=== PATIENT | female | born 1980 | race Caucasian/White ===

== ENCOUNTER 2020-02-26 08:49 | Emergency (ER) | payer OTHER, SELFPAY ==
--- NOTE | 2020-02-26 08:55 | ED.GENADULT ---
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 With the lab to bleed freely washed with Betadine and rinsed appropriately while in the OR and she presents to the emergency room for post exposure discussion of prophylaxis. Related Data Allergies Allergy/AdvReac Type Severity Reaction Status Date / Time No Known Drug Allergies Allergy Verified 02/26/20 09:03 Review of Systems Review of Systems Narrative: Pertinent positive and negative findings as per HPI Remainder of review of systems is otherwise unremarkable for Constitutional: Fevers, chills, weakness CV: Chest pain, palpitations, dyspnea on exertion Respiratory: Cough, wheeze, dyspnea GI: Nausea, vomiting, diarrhea, change in bowel habits, black or bloody stools Patient History Surgical History History of third molar tooth extraction Social History Smoking Status: Never smoker Exam Narrative Exam Narrative: General: Alert appropriate in no acute distress Respiratory: Able to speak in full sentences, no obvious respiratory distress Skin: No obvious rashes, warm and dry Neurologic: Grossly intact no obvious asymmetries or abnormalities Psych, appropriate insight and affect, cooperative Right index finger with a small puncture wound along the paronychia with minimal amount of bleeding Initial Vital Signs Initial Vital Signs: Vital Signs Temperature 98.2 F 02/26/20 08:56 Pulse Rate 89 02/26/20 08:56 Respiratory Rate 18 02/26/20 08:56 Blood Pressure 155/93 H 02/26/20 08:56 Pulse Oximetry 100 02/26/20 08:56 Course Orders Ordered: ED Orders 02/26/20 09:42 HIV 1 & 2 Ab/Ag 4th Gen Combo Routine Hepatitis C Virus Antibody Stat Discontinued Medications Bacitracin (Bacitracin) 1 applic TOP NOW ONE Stop: 02/26/20 09:05 Last Admin: 02/26/20 09:25 Dose: 1 applic Documented by: MICK Vital Signs Vital signs: Vital Signs - 8 hr 02/26/20 08:56 02/26/20 09:56 Temperature 98.2 F Pulse Rate 89 70 Respiratory Rate 18 16 Blood Pressure 155/93 H Blood Pressure [Right Arm] 142/78 H Pulse Oximetry 100 Medical Decision Making MDM Narrative Medical decision making narrative: Low risk blood exposure with a 22 gauge hollow needle used for local anesthetic infiltration prior to needlestick. Hep B hep C and HIV testing done. Source patient is low enough risk that no prophylactic medications are recommended at this time. We are testing source patient. Patient will follow-up with occupational health. Discharge Plan Departure Patient Disposition: Home Clinical Impression: Needle stick injury Instructions: DI for Accidental Exposure to Body Fluids Activity Restrictions/Additional Instructions: Thank you for coming in today Please follow-up with occupational health regarding your hep B, hep C and HIV testing. They should also have access to the lab work results from the source patient. Due to your hepatitis B vaccination, the low risk of the patient as well as the exposure type, no post exposure prophylaxis is recommended at this time. Your blood pressure was slightly elevated when you came in and remains slightly elevated by the end of your ER visit. Please keep track of this and schedule appointment with Dr. Penny to follow-up. I wish you the best Referrals: Bear Penny MD [Primary Care Provider] -
[2020-02-26 08:56] VITALS: BP 155/93; PULSE 89; RESP 18; TEMP 36.8; O2SAT 100; BMI 21.6
[2020-02-26] MEDS: BACITRACIN OINT 0.9 GM PCKT 1 APPLIC TOP (09:25)
[2020-02-26 09:56] VITALS: BP 142/78; PULSE 70; RESP 16
[2020-02-26 11:03] LABS: HIV 1 & 2 Ab/Ag 4th Gen Combo NEGATIVE (NEGATIVE)
[2020-02-26 11:08] LABS: Hep C Virus Ab w/Reflex Quant NEGATIVE s/c (NEGATIVE)
[2020-02-27 04:10] LABS: Hepatitis B Surf Ab Qualitativ Reactive (.)
== END 2020-02-26 10:02 | disposition home or self-care (01) ==
LOC: ED 10:00
PROVIDERS: Emergency Provider Emergency Medicine; Family Provider Family Medicine; PCP Family Medicine
DX: Z77.21 Contact with and (suspected) exposure to potentially hazardous body fluids (principal); W46.1XXA Contact with contaminated hypodermic needle, initial encounter; Y99.0 Civilian activity done for income or pay
CPT/HCPCS: 36415; 86706; 86803; 87389; 99283

== ENCOUNTER → 2020-04-17 10:14 | Outpatient (CLI) | payer OTHER, SELFPAY ==
[2020-04-17 12:06] LABS: Alanine Aminotransferase 23 IU/L (<35); Albumin 4.9 g/dL (3.5-5.0); Albumin Globulin Ratio 1.6 (1.0-2.8); Alkaline Phosphatase 55 U/L (38-126); Aspartate Aminotransferase 28 IU/L (14-36); BUN Creatinine Ratio 17.1 (6-22); Bilirubin Total 0.7 mg/dL (0.2-1.3); Blood Urea Nitrogen 13 mg/dL (7-17); Calcium 9.3 mg/dL (8.4-10.2); Carbon Dioxide 25 mmol/L (22-32); Chloride 105 mmol/L (98-107); Cholesterol 188 mg/dL (140-199); Estimated Glomerular Filt Rate > 60.0 mL/min (>60); Glucose 89 mg/dL (70-100); HDL Cholesterol 87 mg/dL (40-60); HEMOLYSIS < 15 (0-50); LDL Cholesterol Calculated 92 mg/dL (<100); Potassium 3.8 mmol/L (3.4-5.1); Sodium 138 mmol/L (137-145); Total Protein 7.9 g/dL (6.3-8.2); Triglycerides 47 mg/dL (35-150)
== END ==
PROVIDERS: Family Provider Family Medicine; PCP Registered Nurse; Referring Provider Registered Nurse; Visit Provider Registered Nurse
DX: R07.89 Other chest pain (principal); Z86.79 Personal history of other diseases of the circulatory system; Z82.49 Family history of ischemic heart disease and other diseases of the circulatory system
CPT/HCPCS: 36415; 80053; 80061

== ENCOUNTER → 2021-06-04 13:08 | Outpatient (CLI) | payer OTHER, SELFPAY ==
--- NOTE | 2021-06-04 13:09 | DI.US.S_ITS ---
PROCEDURE: US PELVIC COMPLETE INDICATIONS: PELVIC PAIN TECHNIQUE: Real-time scanning was performed of the pelvic organs, with image documentation. Additional endovaginal scanning was necessary due to incomplete visualization of the adnexal and endometrial structures by transabdominal scanning. COMPARISON: None. FINDINGS: Doppler evaluation demonstrates normal flow in the Uterus: Uterus is normal in size at 8.1 x 6.0 x 4.3 cm. The endometrium measures 8.3 mm in combined thickness and has well-defined margins. Trace fluid noted in the cervical canal.. Ovaries: Right ovary measures 3.9 x 2.6 x 2.4 centimeters. There is a 2.5 x 2.5 x 1.4 centimeter dominant follicle in the right ovary. Left ovary measures 3.3 x 1.4 x 1.5 centimeters. Left ovary is sonographically normal. Color Doppler demonstrates vascular flow in the ovaries bilaterally. Other: Small amount of free fluid noted in the lower pelvis which is within physiologic limits. IMPRESSION: 1. Uterus is sonographically normal. 2. 2.5 x 2.5 x 1.4 centimeter right ovarian cyst. Dictated by: Rosette Rea MD, PhD on 06/04/2021 at 16:11 Approved by: Rosette Rea MD, PhD on 06/04/2021 at 16:15
== END ==
PROVIDERS: Family Provider Family Medicine; PCP Registered Nurse; Referring Provider Registered Nurse; Visit Provider Registered Nurse
DX: R10.2 Pelvic and perineal pain (principal); N83.201 Unspecified ovarian cyst, right side
CPT/HCPCS: 76830; 76856

== ENCOUNTER → 2022-11-08 17:28 | Outpatient (CLI) | payer OTHER, SELFPAY | PROVIDERS: Family Provider Family Medicine; PCP Registered Nurse Diabetes Educator; Visit Provider Obstetrics & Gynecology | DX: J02.9 Acute pharyngitis, unspecified (principal) | CPT/HCPCS: 87070 ==

== ENCOUNTER → 2022-12-27 12:38 | Outpatient (CLI) | payer OTHER, SELFPAY ==
--- NOTE | 2022-12-27 | DI.MG.S_ITS ---
BILATERAL DIGITAL SCREENING MAMMOGRAM 3D/2D WITH CAD WITH AUGMENTATION: 12/27/2022 CLINICAL: Routine screening. Baseline exam. No prior exams were available for comparison. Both breasts are extremely dense, which lowers the sensitivity of mammography (category d />75% glandular tissue). Current study was also evaluated with a Computer Aided Detection (CAD) system. Bilateral breast implants are intact. No significant masses, calcifications, or other findings are seen in either breast. IMPRESSION: NEGATIVE There is no mammographic evidence of malignancy. A 1 year screening mammogram is recommended. Based on the Tyrer Cuzick model (a risk assessment model) the patient's lifetime risk is 17.4% and her 10 year risk is 2.4%. According to the ACR, ACS, and NCCN guidelines, an annual breast MRI exam along with mammogram is recommended if the patient's lifetime risk is 20% or greater. This exam was interpreted at Station ID: [id number]. NOTE: For mammograms, a report in lay terms will be sent to the patient. Approximately 15% of breast malignancies will not be visualized mammographically. In the management of a palpable breast mass, a negative mammogram must not discourage biopsy of a clinically suspicious lesion. Electronically Signed By: Dmitriy [email or web address]/minor:12/27/2022 13:25:12 letter sent: Normal Exam ACR BI-RADS Category 1: Negative [id number]
== END ==
PROVIDERS: Family Provider Family Medicine; PCP Registered Nurse Diabetes Educator; Referring Provider Registered Nurse Diabetes Educator; Visit Provider Registered Nurse Diabetes Educator
DX: Z12.31 Encounter for screening mammogram for malignant neoplasm of breast (principal)
CPT/HCPCS: 77063; 77067